=== PATIENT | male | born 1940 | race African-American/Black ===

== ENCOUNTER 2018-09-04 00:21 | Emergency (ER) | payer MEDICARE, BC ==
[~2018-09-04] VITALS: Ht 180.3 cm; Wt 91.0 kg
[2018-09-04 00:55] LABS: BASOPHILS % 0.6 % (0.0-2.0); EOSINOPHILS % 2.3 % (0.0-5.0); HEMATOCRIT. 42.6 % (42.0-52.0); HEMOGLOBIN. 14.7 g/dL (14.0-18.0); LYMPHOCYTES % 22.8 % (20.0-50.0); MEAN CORPUSCULAR HEMOGLOBIN 29.6 pg (28.0-32.0); MEAN CORPUSCULAR VOLUME 85.8 fL (80.0-94.0); MEAN PLATELET VOLUME 7.7 fl (7.4-10.4); MONOCYTES % 6.4 % (2.0-8.0); NEUTROPHILS % 67.9 % (40.0-76.0); PLATELET 242 x1000/uL (130-400); RED BLOOD CELL COUNT 4.96 mill/uL (4.7-6.1); RED CELL DISTRIBUTION WIDTH 14.4 % (11.6-14.6)
[2018-09-04 01:02] LABS: CHLORIDE 105 mEq/L (98-107)
[2018-09-04 03:18] VITALS: BP 171/87
== END 2018-09-04 03:21 | disposition home or self-care (01) ==
LOC: ER 00:21
DX: I10 Essential (primary) hypertension (principal); R73.9 Hyperglycemia, unspecified; R11.0 Nausea; E78.00 Pure hypercholesterolemia, unspecified
CPT/HCPCS: 36415; 71045; 83880; 84484; 93005; 99285